=== PATIENT | female | born 1975 | race Caucasian/White ===

== ENCOUNTER 2023-06-08 17:37 | Emergency (ER) | payer OTHER, SELFPAY ==
[2023-06-08] MEDS ORDERED: Cyclobenzaprine 10 MG TAB ONE (17:59)
[2023-06-08] MEDS ORDERED: Boostrix 0.5 ML (Tdap) VIAL (>/=7 yrs of age) ONE (18:00)
[2023-06-08] MEDS ORDERED: Acetaminophen 500 MG TAB ONE (18:00)
== END 2023-06-08 19:16 | disposition home or self-care (01) ==
LOC: CSHERS 17:37
DX: S01.81XA Laceration without foreign body of other part of head, initial encounter (principal); V89.2XXA Person injured in unspecified motor-vehicle accident, traffic, initial encounter
CPT/HCPCS: 12002; 70450; 90471; 90715